=== PATIENT | female | born 1945 | race Caucasian/White ===

== ENCOUNTER → 2016-05-14 | Outpatient (CLI) | payer MEDICARE ==
--- NOTE | 2016-05-16 11:07 | MM ---
Reason for exam: screening (asymptomatic). Last mammogram was performed 1 year and 7 months ago. History: Patient is postmenopausal. Took estrogen for 10 years beginning at age 49. Physical Findings: A clinical breast exam by your physician is recommended on an annual basis and results should be correlated with mammographic findings. MG Screening Mammo w CAD Bilateral CC and MLO view(s) were taken. Prior study comparison: October 02, 2014, mammogram, performed at [facility]. June 10, 2013, mammogram, performed at [facility]. The breast tissue is almost entirely fat. Finding: There are round, regional and diffuse calcifications in both breasts, greater in the right breast. There is no discrete abnormality. ASSESSMENT: Benign, BI-RAD 2 RECOMMENDATION: Routine screening mammogram of both breasts in 1 year.
== END | disposition home or self-care (01) ==
LOC: RADMAMWWP 07:08
PROVIDERS: ATTEND Family Medicine
DX: Z12.31 Encounter for screening mammogram for malignant neoplasm of breast (principal)

== ENCOUNTER 2016-08-22 12:44 | Inpatient (IN) | payer MEDICARE ==
[2016-08-22] MEDS ORDERED: methylPREDNISolone SOD SUCCI 125 MG/2 ML VIAL IV STA (12:57)
[2016-08-22] MEDS ORDERED: IPRATROPIUM 0.5 MG/2.5 ML NEBU INHALATION STA (12:57)
[2016-08-22] MEDS ORDERED: SODIUM CHLORIDE 0.9% 1,000 ML IV STA (12:57)
[2016-08-22] MEDS ORDERED: SODIUM CHLORIDE 0.9% 500 ML IV STA (12:57)
[2016-08-22] MEDS ORDERED: ALBUTEROL NEBULIZED 2.5 MG/3 ML INHALATION STA (12:57)
--- NOTE | 2016-08-22 13:17 | ED ---
General Adult HPI - General Chief complaint: Upper Respiratory Infection Stated complaint: DIANA Time Seen by Provider: 08/22/16 12:57 Source: patient, RN notes reviewed, old records reviewed Mode of arrival: wheelchair Limitations: no limitations - History of Present Illness Initial comments: This is a 72-year-old female the ER for evaluation. The patient severely for evaluation of significant and severe shortness of breath. Patient is a history of smoking and COPD. Patient has never been admitted for breathing issues before. 2-3 days of worsening shortness of breath. Weakness and inability to ambulate secondary to shortness of breath. Patient's ABG was at home with no help. No fevers, does have increased cough and congestion - Related Data Home Medications Medication Instructions Recorded Confirmed Cholecalciferol [Vitamin D3] 2,000 unit PO DAILY 11/21/14 08/22/16 Losartan Potassium [Cozaar] 100 mg PO DAILY 11/21/14 08/22/16 Promethazine/Dextromethorphan 5 ml PO HS 11/21/14 08/22/16 [Promethazine-Dm Syrup] Simvastatin [Zocor] 20 mg PO HS 11/21/14 08/22/16 Calcium Carbonate [Calcium] 600 mg PO DAILY 08/22/16 08/22/16 Ibuprofen [Motrin] 400 mg PO Q6HR PRN 08/22/16 08/22/16 Multivitamins, Thera [Multivitamin 1 tab PO DAILY 08/22/16 08/22/16 (formulary)] Raloxifene HCl 60 mg PO DAILY 08/22/16 08/22/16 Allergies Allergy/AdvReac Type Severity Reaction Status Date / Time erythromycin base AdvReac Rash/Hives Verified 08/22/16 13:59 Penicillins AdvReac Rash/Hives Verified 08/22/16 13:59 Review of Systems ROS Statement: Those systems with pertinent positive or pertinent negative responses have been documented in the HPI. ROS Other: All systems not noted in ROS Statement are negative. Past Medical History Past Medical History: Asthma, COPD, Hyperlipidemia, Hypertension History of Any Multi-Drug Resistant Organisms: None Reported Past Surgical History: Appendectomy, Hernia Repair Past Psychological History: No Psychological Hx Reported Smoking Status: Current every day smoker Past Alcohol Use History: None Reported Past Drug Use History: None Reported General Exam Limitations: no limitations General appearance: alert, anxious, in distress, cachectic Head exam: Present: atraumatic, normocephalic, normal inspection Eye exam: Present: normal appearance, PERRL, EOMI. Absent: scleral icterus, conjunctival injection, periorbital swelling ENT exam: Present: normal exam, mucous membranes moist Neck exam: Present: normal inspection. Absent: tenderness, meningismus, lymphadenopathy Respiratory exam: Present: wheezes, accessory muscle use, decreased breath sounds, prolonged expiratory. Absent: respiratory distress, rales, rhonchi, stridor Cardiovascular Exam: Present: normal rhythm, tachycardia, normal heart sounds. Absent: systolic murmur, diastolic murmur, rubs, gallop, clicks GI/Abdominal exam: Present: soft, normal bowel sounds. Absent: distended, tenderness, guarding, rebound, rigid Extremities exam: Present: normal inspection, full ROM, normal capillary refill. Absent: tenderness, pedal edema, joint swelling, calf tenderness Back exam: Present: normal inspection Neurological exam: Present: alert, oriented X3, CN II-XII intact Psychiatric exam: Present: normal affect, normal mood Skin exam: Present: warm, dry, intact, normal color. Absent: rash Course Vital Signs 08/22/16 08/22/16 08/22/16 12:52 13:09 13:11 Temperature 99.1 F Pulse Rate 108 H 100 Respiratory 26 H Rate Blood Pressure 159/80 O2 Sat by Pulse 89 L 96 Oximetry 08/22/16 08/22/16 08/22/16 13:12 13:20 13:45 Temperature Pulse Rate 102 H 119 H Respiratory 22 22 20 Rate Blood Pressure 134/77 O2 Sat by Pulse 99 Oximetry 08/22/16 08/22/16 08/22/16 14:02 14:13 15:03 Temperature 98.7 F Pulse Rate 119 H 111 H 130 H Respiratory 18 20 Rate Blood Pressure 136/63 123/56 O2 Sat by Pulse 100 97 Oximetry - Reevaluation(s) Reevaluation #1: 08/22/16 15:14 Patient remains persistently tachycardic, hypoxic and short of breath despite prolonged breathing treatment on oxygen and is still requiring oxygen EKG Findings - EKG Comments: EKG Findings:: EKG shows sinus tachycardia rate 101, AK 126, QRS 64, QTc 443 Medical Decision Making - Medical Decision Making 72. EF reevaluation significant shortness of breath hypoxia and room air nonhome O2. Patient is a long-time smoker with no diagnosis of COPD, patient's new onset COPD, will admit for IV steroids, continuous breathing treatments, IV resuscitation monitoring of cardiopulmonary status - Lab Data Result diagrams: 08/22/16 13:05 08/22/16 13:05 Lab Results 08/22/16 08/22/16 08/22/16 Range/Units 13:05 13:05 13:05 WBC 8.6 (3.8-10.6) k/uL RBC 5.27 (3.80-5.40) m/uL Hgb 15.9 (11.4-16.0) gm/dL Hct 50.1 H (34.0-46.0) % MCV 95.0 (80.0-100.0) fL MCH 30.2 (25.0-35.0) pg MCHC 31.8 (31.0-37.0) g/dL RDW 13.8 (11.5-15.5) % Plt Count 185 (150-450) k/uL Neutrophils % 74 % Lymphocytes % 12 % Monocytes % 7 % Eosinophils % 4 % Basophils % 1 % Neutrophils # 6.3 (1.3-7.7) k/uL Lymphocytes # 1.0 (1.0-4.8) k/uL Monocytes # 0.6 (0-1.0) k/uL Eosinophils # 0.4 (0-0.7) k/uL Basophils # 0.1 (0-0.2) k/uL PT (9.0-12.0) sec INR (<1.1) APTT (22.0-30.0) sec Sodium 141 (137-145) mmol/L Potassium 4.1 (3.5-5.1) mmol/L Chloride 107 (98-107) mmol/L Carbon Dioxide 26 (22-30) mmol/L Anion Gap 8 mmol/L BUN 19 H (7-17) mg/dL Creatinine 0.58 (0.52-1.04) mg/dL Est GFR (MDRD) Af Amer >60 (>60 ml/min/1.73 sqM) Est GFR (MDRD) Non-Af >60 (>60 ml/min/1.73 sqM) Glucose 92 (74-99) mg/dL Calcium 9.4 (8.4-10.2) mg/dL Magnesium 2.0 (1.6-2.3) mg/dL Total Bilirubin 0.8 (0.2-1.3) mg/dL AST 32 (14-36) U/L ALT 32 (9-52) U/L Alkaline Phosphatase 60 (38-126) U/L Total Creatine Kinase 132 (30-135) U/L CK-MB (CK-2) 2.6 H* (0.0-2.4) ng/mL CK-MB (CK-2) Rel Index 2.0 Troponin I <0.012 (0.000-0.034) ng/mL NT-Pro-B Natriuret Pep pg/mL Total Protein 7.1 (6.3-8.2) g/dL Albumin 4.1 (3.5-5.0) g/dL 08/22/16 08/22/16 Range/Units 13:05 13:05 WBC (3.8-10.6) k/uL RBC (3.80-5.40) m/uL Hgb (11.4-16.0) gm/dL Hct (34.0-46.0) % MCV (80.0-100.0) fL MCH (25.0-35.0) pg MCHC (31.0-37.0) g/dL RDW (11.5-15.5) % Plt Count (150-450) k/uL Neutrophils % % Lymphocytes % % Monocytes % % Eosinophils % % Basophils % % Neutrophils # (1.3-7.7) k/uL Lymphocytes # (1.0-4.8) k/uL Monocytes # (0-1.0) k/uL Eosinophils # (0-0.7) k/uL Basophils # (0-0.2) k/uL PT 10.1 (9.0-12.0) sec INR 1.0 (<1.1) APTT 22.0 (22.0-30.0) sec Sodium (137-145) mmol/L Potassium (3.5-5.1) mmol/L Chloride (98-107) mmol/L Carbon Dioxide (22-30) mmol/L Anion Gap mmol/L BUN (7-17) mg/dL Creatinine (0.52-1.04) mg/dL Est GFR (MDRD) Af Amer (>60 ml/min/1.73 sqM) Est GFR (MDRD) Non-Af (>60 ml/min/1.73 sqM) Glucose (74-99) mg/dL Calcium (8.4-10.2) mg/dL Magnesium (1.6-2.3) mg/dL Total Bilirubin (0.2-1.3) mg/dL AST (14-36) U/L ALT (9-52) U/L Alkaline Phosphatase (38-126) U/L Total Creatine Kinase (30-135) U/L CK-MB (CK-2) (0.0-2.4) ng/mL CK-MB (CK-2) Rel Index Troponin I (0.000-0.034) ng/mL NT-Pro-B Natriuret Pep 176 pg/mL Total Protein (6.3-8.2) g/dL Albumin (3.5-5.0) g/dL - Radiology Data Radiology results: report reviewed, image reviewed Critical Care Time Critical Care Time: Yes Total Critical Care Time: 31 Disposition Clinical Impression: Bronchitis, Acute exacerbation of COPD with asthma, Hypoxia Disposition: ADMITTED IP TO THIS [facility] Condition: Fair Referrals: Nathanael Watt DO [Primary Care Provider] - 1-2 days
[2016-08-22 13:39] LABS: Basophils # (A) 0.1 k/uL (0-0.2); Basophils % (A) 1 %; CH 30.4; CHCM 32.2; Eosinophils # (A) 0.4 k/uL (0-0.7); Eosinophils % (A) 4 %; HCT 50.1 % (34.0-46.0); HDW 2.15; HGB 15.9 gm/dL (11.4-16.0); Luc # (Auto) 0.16; Luc % (Auto) 2; Lymphocytes % (A) 12 %; MCH 30.2 pg (25.0-35.0); MCHC 31.8 g/dL (31.0-37.0); Monocytes # (A) 0.6 k/uL (0-1.0); Monocytes % (A) 7 %; Neutrophils # (A) 6.3 k/uL (1.3-7.7); Neutrophils % (A) 74 %; RBC 5.27 m/uL (3.80-5.40); RDW 13.8 % (11.5-15.5); WBC 8.6 k/uL (3.8-10.6); WBC (Perox) 8.32
[2016-08-22 13:42] LABS: Prothrombin Time 10.1 sec (9.0-12.0)
[2016-08-22 13:49] LABS: ALT 32 U/L (9-52); AST 32 U/L (14-36); Alkaline Phosphatase 60 U/L (38-126); Anion Gap 8 mmol/L; Blood Urea Nitrogen 19 mg/dL (7-17); Calcium 9.4 mg/dL (8.4-10.2); Carbon Dioxide 26 mmol/L (22-30); Chloride 107 mmol/L (98-107); Creatine Kinase 132 U/L (30-135); Glucose 92 mg/dL (74-99); Non-African American GFR(MDRD) >60 (>60 ml/min/1.73 sqM); Potassium 4.1 mmol/L (3.5-5.1); Sodium 141 mmol/L (137-145); Total Bilirubin 0.8 mg/dL (0.2-1.3); Total Protein 7.1 g/dL (6.3-8.2)
[2016-08-22 14:01] LABS: Troponin I <0.012 ng/mL (0.000-0.034)
[2016-08-22 14:10] LABS: Creatine Kinase MB 2.6 ng/mL (0.0-2.4)
--- NOTE | 2016-08-22 15:03 | XR ---
EXAMINATION TYPE: XR chest 2V DATE OF EXAM: 08/22/2016 2:45 PM COMPARISON: NONE INDICATION: Difficulty breathing history of COPD shortness of breath TECHNIQUE: 2 view chest FINDINGS: The heart size is normal. The pulmonary vasculature is normal. The lungs are clear. Small posterior fluid collection is present. IMPRESSION: 1. Small posterior pleural effusion
[2016-08-22] MEDS ORDERED: SODIUM CHLORIDE 0.9% 1,000 ML IV SCH (15:15)
[2016-08-22] MEDS ORDERED: IBUPROFEN 400 MG TAB PO PRN (16:58)
[2016-08-22 17:00] LABS: Glucose,Whole Blood 166 mg/dL (75-99)
[2016-08-22] MEDS: IPRATROPIUM-ALBUTEROL 3 ML NEB INHALATION SCH ×2 (17:04→21:32)
[2016-08-22] MEDS ORDERED: RALOXIFENE 60 MG TAB PO SCH (17:30)
[2016-08-22] MEDS ORDERED: LOSARTAN 50 MG TAB PO SCH (17:30)
[2016-08-22] MEDS: methylPREDNISolone SOD SUCCI 125 MG/2 ML VIAL IV SCH ×2 (17:35→23:24)
[2016-08-22] MEDS: CALCIUM CARBONATE 500 MG CHEWABLE PO SCH (17:46)
[2016-08-22] MEDS: MULTIVITAMINS, THERA 1 EACH TAB PO SCH (17:46)
[2016-08-22] MEDS: CHOLECALCIFEROL 1,000 UNIT TAB PO SCH (17:47)
[2016-08-22] MEDS: INSULIN LISPRO (humaLOG) 300 UNIT/3 ML VIAL SQ SCH ×2 (17:47→21:28)
[2016-08-22] MEDS ORDERED: ALPRAZolam 0.25 MG TAB PO STA ×2 (18:04→18:08)
[2016-08-22] MEDS: ACETAMINOPHEN TAB 325 MG TAB PO PRN (18:36)
[2016-08-22 20:06] VITALS: BMI 22.7
[2016-08-22 20:12] LABS: Hemoglobin A1C 5.4 % (4.2-6.1)
[2016-08-22 20:49] LABS: Glucose,Whole Blood 157 mg/dL (75-99)
[2016-08-22] MEDS: ATORVASTATIN 10 MG TAB PO SCH (20:59)
[2016-08-22] MEDS: RALOXIFENE 60 MG TAB PO SCH (20:59)
[2016-08-22] MEDS: LOSARTAN 50 MG TAB PO SCH (20:59)
[2016-08-22] MEDS: MELATONIN 3 MG TABLET PO SCH (21:29)
--- NOTE | 2016-08-22 23:01 | HP ---
DATE OF ADMISSION: 08/22/2016 PRESENTING COMPLAINT: Short of breath. HISTORY OF PRESENTING COMPLAINT: This is a very pleasant 71-year-old patient of Dr. Watt whose chronic stable medical conditions include hypertension, hyperlipidemia, osteoarthritis ( ) For 2 or 3 days patient was becoming more and more short of breath with cough, phlegm, dark in color. No fever. Appetite has dwindled. Just weak, tired. Patient remains a smoker. Admitted for the same. REVIEW OF SYSTEMS: CONSTITUTIONAL: Weak and tired. HEENT: None. RESPIRATORY: As above. CARDIOVASCULAR: None. GASTROINTESTINAL: None. GENITOURINARY: None. MUSCULOSKELETAL: Some pain in the joints. DERMATOLOGICAL: None. HEMATOLOGIC: None. LYMPHATICS: None. PSYCHIATRY: None. NEUROLOGICAL: None. PAST HISTORY: 1. COPD. 2. Hyperlipidemia. 3. Hypertension. PAST SURGICAL HISTORY: Appendectomy, hernia. SOCIAL HISTORY: . Has smoked 3/4 pack a day close to 60 years. No alcohol. FAMILY HISTORY: Reviewed; noncontributory to presentation. HOME MEDICATIONS: 1. Raloxifene 60 mg p.o. daily. 2. Motrin 400 mg q.6 p.r.n. 3. Calcium 600 mg p.o. daily. 4. Zocor 20 mg at bedtime. 5. Promethazine DM 5 mL at bedtime. 6. Multivitamin 1 tablet p.o. daily. 7. Cozaar 100 mg p.o. daily. 8. Vitamin D3 200 units p.o. daily. ALLERGIES: ERYTHROMYCIN and PENICILLIN. PHYSICAL EXAMINATION: VITAL SIGNS ON PRESENTATION: Temperature 97, pulse 117, respiration 20, blood pressure 127/91, pulse ox 95% on 2 L. GENERAL APPEARANCE: Thin build. Sitting up, short of breath. EYES: Pupils equal. Conjunctivae normal. HEENT: External appearance of nose and ears normal. Oral cavity normal. NECK: JVD not raised. Mass not palpable. RESPIRATORY: Effort increased. LUNGS: Poor air entry. Prolonged expiration and wheezing. CARDIOVASCULAR: First and second sounds normal. No edema. ABDOMEN: Soft, nontender. Liver and spleen not palpable. LYMPHATICS: No lymph node palpable in neck or axillae. PSYCHIATRY: Alert and oriented x3. Mood slightly anxious-appearing. NEUROLOGICAL: Pupils equal. Cranial nerves grossly intact. Power and sensation grossly intact. MUSCULOSKELETAL: Evidence of osteoarthritis, especially in the hands and knees. INVESTIGATIONS: White count 8.6, hemoglobin 13.9. Potassium 4.1. Troponin less than 0.012. Chest x-ray shows hyperinflation. ASSESSMENT: 1. Acute severe chronic obstructive pulmonary disease exacerbation in a smoker, probably from acute bronchitis. 2. Sinus tachycardia. 3. Chronic nicotine dependence. Patient is a cigarette smoker. 4. Hyperlipidemia. 5. Essential hypertension. 6. Primary osteoarthritis in multiple joints bilaterally. PLAN: Patient is put on nebulized bronchodilators every 4 hours, IV Solu-Medrol and nebulized steroids. Patient advised against smoking, given a nicotine patch. Home medications are resumed. DVT prophylaxis done. Patient was counseled extensively about not smoking.
[2016-08-23] MEDS: BUDESONIDE 1 MG/2 ML NEBU INHALATION SCH ×3 (00:30→20:43)
[2016-08-23] MEDS: IPRATROPIUM 0.5 MG/2.5 ML NEBU INHALATION SCH ×6 (00:49→23:49)
[2016-08-23] MEDS: ALBUTEROL NEBULIZED 2.5 MG/3 ML INHALATION SCH ×7 (00:49→23:48)
[2016-08-23] MEDS: methylPREDNISolone SOD SUCCI 125 MG/2 ML VIAL IV SCH ×3 (05:39→18:15)
[2016-08-23 07:41] LABS: Glucose,Whole Blood 109 mg/dL (75-99)
[2016-08-23] MEDS: INSULIN LISPRO (humaLOG) 300 UNIT/3 ML VIAL SQ SCH ×4 (07:57→22:35)
[2016-08-23] MEDS: AZITHROMYCIN 500 MG TAB PO SCH (09:13)
[2016-08-23] MEDS: CALCIUM CARBONATE 500 MG CHEWABLE PO SCH (09:14)
[2016-08-23] MEDS: ENOXAPARIN 40 MG/0.4 ML SYRINGE SQ SCH (09:14)
[2016-08-23] MEDS: NICOTINE 21MG/24HR PATCH TRANSDERM SCH (09:15)
[2016-08-23] MEDS: ACETAMINOPHEN TAB 325 MG TAB PO PRN (10:36)
[2016-08-23 12:42] LABS: Glucose,Whole Blood 124 mg/dL (75-99)
[2016-08-23] MEDS: CHOLECALCIFEROL 1,000 UNIT TAB PO SCH (12:42)
[2016-08-23] MEDS: MULTIVITAMINS, THERA 1 EACH TAB PO SCH (12:42)
[2016-08-23 17:23] LABS: Glucose,Whole Blood 117 mg/dL (75-99)
[2016-08-23] MEDS: RALOXIFENE 60 MG TAB PO SCH (20:37)
[2016-08-23] MEDS: ATORVASTATIN 10 MG TAB PO SCH (20:38)
[2016-08-23] MEDS: MELATONIN 3 MG TABLET PO SCH (20:38)
[2016-08-23] MEDS: LOSARTAN 50 MG TAB PO SCH (20:38)
[2016-08-23 22:33] LABS: Glucose,Whole Blood 176 mg/dL (75-99)
[2016-08-24] MEDS: methylPREDNISolone SOD SUCCI 40 MG/ML 1 ML VIAL IV SCH ×3 (00:52→16:54)
[2016-08-24] MEDS: IPRATROPIUM 0.5 MG/2.5 ML NEBU INHALATION SCH ×6 (03:45→23:50)
[2016-08-24] MEDS: ALBUTEROL NEBULIZED 2.5 MG/3 ML INHALATION SCH ×5 (03:45→18:48)
[2016-08-24 07:25] LABS: Glucose,Whole Blood 126 mg/dL (75-99)
[2016-08-24] MEDS: INSULIN LISPRO (humaLOG) 300 UNIT/3 ML VIAL SQ SCH ×4 (07:29→22:28)
[2016-08-24] MEDS: BUDESONIDE 1 MG/2 ML NEBU INHALATION SCH ×2 (07:59→19:47)
[2016-08-24] MEDS: AZITHROMYCIN 500 MG TAB PO SCH (08:51)
[2016-08-24] MEDS: CALCIUM CARBONATE 500 MG CHEWABLE PO SCH (08:51)
[2016-08-24] MEDS: NICOTINE 21MG/24HR PATCH TRANSDERM SCH (08:52)
[2016-08-24] MEDS: ENOXAPARIN 40 MG/0.4 ML SYRINGE SQ SCH (08:52)
[2016-08-24 09:20] LABS: Basophils % (A) 0 %; CHCM 31.8; Eosinophils # (A) 0.1 k/uL (0-0.7); Eosinophils % (A) 0 %; HCT 45.4 % (34.0-46.0); HDW 2.22; HGB 14.6 gm/dL (11.4-16.0); Luc # (Auto) 0.06; Luc % (Auto) 0; Lymphocytes # (A) 0.5 k/uL (1.0-4.8); Lymphocytes % (A) 2 %; MCH 30.6 pg (25.0-35.0); MCHC 32.3 g/dL (31.0-37.0); Mean Platelet Volume 7.5; Monocytes # (A) 0.6 k/uL (0-1.0); Monocytes % (A) 3 %; Neutrophils # (A) 18.3 k/uL (1.3-7.7); Neutrophils % (A) 94 %; RBC 4.78 m/uL (3.80-5.40); RDW 13.9 % (11.5-15.5); WBC 19.4 k/uL (3.8-10.6); WBC (Perox) 20.29
--- NOTE | 2016-08-24 09:46 | PN ---
DATE OF SERVICE: 08/23/2016 PRESENTING COMPLAINT: Shortness of breath. INTERVAL HISTORY: This is a pleasant 71-year-old patient who experienced increasing shortness of breath over a 2 to 3-day course. Patient experienced to cough up phlegm production was dark in color. No fevers were noted. Appetite was reduced. Complained of being weak and tired. Patient continues to smoke. Today, patient is sitting at the bedside, awake, alert, appears anxious, yet symptoms well controlled. Review of systems done for constitutional, cardiovascular, GI, pulmonary with relevant findings as above. CURRENT MEDICATIONS: Raloxifene, Motrin, calcium, Zocor, promethazine, multivitamin, Cozaar, vitamin D 3. PHYSICAL EXAMINATION: VITAL SIGNS: Temperature 98.7, heart rate 118, respiratory rate 18, blood pressure 124/61, oxygen saturation 96% on 2 L nasal cannula. GENERAL APPEARANCE: Patient is sitting up in bed breathing easily, noted some shaking, tearful when speaking of her and family situation, anxious appearing. EYES: Pupils equal. Conjunctivae normal. NECK: JVD not raised. Mass not palpable. RESPIRATORY: Effort increased. LUNGS: Poor air entry. Prolonged expiration and wheezing. CARDIOVASCULAR: S1, S2 sounds normal. No edema. ABDOMEN: Soft, nontender. Liver and spleen not palpable. PSYCHIATRY: Alert and oriented x3. Mood slightly anxious appearing. INVESTIGATIONS: No new lab values or x-rays to report. ASSESSMENT: 1. Acute severe chronic obstructive pulmonary disease exacerbation in a smoker, probably from acute bronchitis. 2. Sinus tachycardia secondary to steroid use. 3. Nicotine dependence. Patient is a cigarette smoker. 4. Hyperlipidemia. 5. Essential hypertension. 6. Primary osteoarthritis in multiple joints bilaterally. PLAN: Patient will continue to be on nebulized bronchodilators every 4 hours, IV Solu-Medrol will be tapered as patient's condition dictates as well as nebulized steroids. Once again today patient was advised against smoking, provided a nicotine patch. For anxiety, patient was provided with a small dose of Xanax twice a day.
[2016-08-24 10:23] LABS: Anion Gap 7 mmol/L; Blood Urea Nitrogen 20 mg/dL (7-17); Calcium 9.2 mg/dL (8.4-10.2); Carbon Dioxide 28 mmol/L (22-30); Chloride 112 mmol/L (98-107); Glucose 116 mg/dL (74-99); Non-African American GFR(MDRD) >60 (>60 ml/min/1.73 sqM); Potassium 3.9 mmol/L (3.5-5.1); Sodium 147 mmol/L (137-145)
--- NOTE | 2016-08-24 12:08 | CDI ---
In responding to this query, please exercise your independent professional judgment. The [facility] Coding Staff and Clinical Documentation Specialists appreciate your assistance in clarifying documentation, maintaining compliance with coding guidelines, accurately documenting patients condition and capturing severity of illness. The fact that a question is asked does not imply that any particular answer is desired or expected. Communication forms are a method of clarifying documentation and are not made part of the Legal Health Record. Thank you in advance for your clarification. Last Revision, June 2015 Narcisa Martinez [address] [place] [address] Documentation Clarification Form Date: 08/23/2016 11:38:00 AM From: Amanda Pereira RN, CDS Admit Date: 08/22/2016 3:13:00 PM Patient Name: Alexandra De Jesus Visit Number: [id number] Dr. Mic Lund, Chikis Mendoza, TIA The patient presented with the following respiratory symptoms: shortness of breath worsening for 2-3 days, Cough Documentation and location in medical record included: History/Risk Factors: 71 yo COPD, smoker, worsening shortness of breath, weakness, inability to ambulate Home oxygen: None Clinical Indicators: "Wheezes, Accessory muscle use, decreased breath sounds, prolonged expiratory" "Hypoxia" per ED, O2 sat 89% on room air on admission, " respiratory effort increased, Poor air entry, prolonged expiration and wheezing , Vital signs/Pulse oximetry: Resp: 26 in ED, Resp range 20-22, O2 Sat 89/room air then 96-100 on Nebs and O2/2L Treatment: Duoneb, IV Solu-medrol, O2/2L per PA In your professional opinion, can you please clarify if these findings signify one of the following conditions? Respiratory Status: o Acute Respiratory failure with hypoxia o Other Diagnosis, please specify o Unable to determine Please document in your progress notes and discharge summary in order to capture severity of illness and risk of mortality. Include clinical findings that support your diagnosis. FYI: Press F11 to launch patient chart. Place X here if this finding has no clinical significance, is not applicable or if you are not able to provide any additional documentation. MOHAN
[2016-08-24 12:33] LABS: Glucose,Whole Blood 94 mg/dL (75-99)
[2016-08-24] MEDS: CHOLECALCIFEROL 1,000 UNIT TAB PO SCH (13:42)
[2016-08-24] MEDS: MULTIVITAMINS, THERA 1 EACH TAB PO SCH (13:42)
[2016-08-24] MEDS: ALPRAZolam 0.25 MG TAB PO PRN (16:54)
[2016-08-24 17:56] LABS: Glucose,Whole Blood 105 mg/dL (75-99)
[2016-08-24] MEDS: ALBUTEROL NEB (CONC) 2.5 MG/0.5 ML INHALATION SCH ×2 (19:47→23:50)
[2016-08-24] MEDS ORDERED: ALPRAZolam 0.25 MG TAB PO SCH (21:00)
[2016-08-24 21:29] LABS: Glucose,Whole Blood 136 mg/dL (75-99)
--- NOTE | 2016-08-24 21:58 | PN ---
DATE OF SERVICE: 08/24/2016 PRESENTING COMPLAINT: Shortness of breath. This is a 71-year-old patient who experienced increasing shortness of breath, inability to cough up phlegm; however, when she did, phlegm was dark in color. Patient is sitting on the bedside, awake, alert, appears anxious, yet symptoms are well controlled. Review of systems done for constitutional, cardiovascular, GI, pulmonary, with relevant findings as above. CURRENT MEDICATIONS: 1. Raloxifene. 2. Motrin. 3. Calcium. 4. Zocor. 5. Promethazine. 6. Multivitamin. 7. Cozaar. 8. Vitamin D3. PHYSICAL EXAMINATION: VITAL SIGNS: Temperature 96.3, heart rate 58, respiratory rate 20, blood pressure 148/67, oxygen saturation 90% on 2 L nasal cannula. GENERAL APPEARANCE: Patient is sitting up on the bed, breathing easily. Some shaking is noted. Anxious-appearing. EYES: Pupils equal. Conjunctivae normal. NECK: JVD not raised. Mass not palpable. RESPIRATORY: Effort increased. LUNGS: Poor air entry. Prolonged expiration and wheezing. CARDIOVASCULAR: S1, S2 sounds normal. No edema. Patient's heart rate periodically goes up into the 110s per telemetry. ABDOMEN: Soft, nontender. Liver and spleen not palpable. PSYCHIATRY: Alert and oriented x3. Mood slightly anxious-appearing. INVESTIGATIONS: White blood cell count 19.4. Sodium 147, chloride 112, BUN 20. Blood glucose being monitored secondary to steroid administration. ASSESSMENT: 1. Acute severe chronic obstructive pulmonary disease exacerbation in a smoker, probably from acute bronchitis. 2. Sinus tachycardia secondary to steroid use. 3. Nicotine dependence. Patient is a cigarette smoker. 4. Hyperlipidemia. 5. Essential hypertension. 6. Primary osteoarthritis in multiple joints bilaterally. PLAN: Patient will continue to be on nebulized bronchodilators every 4 hours. IV Solu-Medrol will be tapered as patient's condition dictates as well as nebulized steroids. Once again, patient was advised against smoking, provided a nicotine patch. For anxiety patient was provided with a small dose of Xanax twice a day. Patient was seen and examined by me, nurse practitioner, and attending, Dr. Lund. The relevant points of the history, physical, diagnoses and plan were discussed and are as dictated above.
[2016-08-24] MEDS: MELATONIN 3 MG TABLET PO SCH (22:26)
[2016-08-24] MEDS: RALOXIFENE 60 MG TAB PO SCH (22:26)
[2016-08-24] MEDS: ATORVASTATIN 10 MG TAB PO SCH (22:27)
[2016-08-24] MEDS: LOSARTAN 50 MG TAB PO SCH (23:40)
[2016-08-25] MEDS: methylPREDNISolone SOD SUCCI 40 MG/ML 1 ML VIAL IV SCH ×2 (00:50→08:55)
[2016-08-25] MEDS: ALBUTEROL NEB (CONC) 2.5 MG/0.5 ML INHALATION SCH ×6 (03:55→23:06)
[2016-08-25] MEDS: IPRATROPIUM 0.5 MG/2.5 ML NEBU INHALATION SCH ×6 (03:55→23:06)
[2016-08-25 07:45] LABS: Glucose,Whole Blood 102 mg/dL (75-99)
[2016-08-25] MEDS: INSULIN LISPRO (humaLOG) 300 UNIT/3 ML VIAL SQ SCH ×4 (07:51→21:38)
[2016-08-25] MEDS: BUDESONIDE 1 MG/2 ML NEBU INHALATION SCH ×2 (07:56→19:46)
[2016-08-25] MEDS: ACETAMINOPHEN TAB 325 MG TAB PO PRN (08:50)
[2016-08-25 08:53] LABS: Basophils % (A) 0 %; CH 30.1; CHCM 31.7; Eosinophils % (A) 0 %; HCT 46.9 % (34.0-46.0); HDW 2.21; HGB 14.8 gm/dL (11.4-16.0); Luc # (Auto) 0.07; Luc % (Auto) 0; Lymphocytes # (A) 0.5 k/uL (1.0-4.8); Lymphocytes % (A) 3 %; MCH 30.1 pg (25.0-35.0); MCHC 31.5 g/dL (31.0-37.0); MCV 95.3 fL (80.0-100.0); Mean Platelet Volume 7.9; Monocytes # (A) 0.4 k/uL (0-1.0); Monocytes % (A) 3 %; Neutrophils # (A) 15.3 k/uL (1.3-7.7); Neutrophils % (A) 93 %; RBC 4.92 m/uL (3.80-5.40); RDW 13.9 % (11.5-15.5); WBC 16.4 k/uL (3.8-10.6); WBC (Perox) 16.76
[2016-08-25] MEDS: ENOXAPARIN 40 MG/0.4 ML SYRINGE SQ SCH (08:54)
[2016-08-25] MEDS: NICOTINE 21MG/24HR PATCH TRANSDERM SCH (08:54)
[2016-08-25] MEDS: AZITHROMYCIN 500 MG TAB PO SCH (08:55)
[2016-08-25] MEDS: ALPRAZolam 0.25 MG TAB PO PRN ×2 (08:55→21:38)
[2016-08-25] MEDS: CALCIUM CARBONATE 500 MG CHEWABLE PO SCH (08:55)
[2016-08-25 11:47] LABS: Glucose,Whole Blood 88 mg/dL (75-99)
[2016-08-25] MEDS: MULTIVITAMINS, THERA 1 EACH TAB PO SCH (12:04)
[2016-08-25] MEDS: CHOLECALCIFEROL 1,000 UNIT TAB PO SCH (12:05)
--- NOTE | 2016-08-25 17:13 | PN ---
Patient is a 71-year-old who is admitted for COPD exacerbation. Patient is not wheezing significantly on exam, although she may have a little bit of wheeze, but patient continues to desaturate, because of which I wanted to rule out pulmonary embolism. I will obtain a D-dimer. I will switch her to oral prednisone. If D-dimer is positive, will get a CT angiogram of the chest to rule out pulmonary embolism. Patient became tachycardic, which was believed secondary to systemic steroids. Patient is on and off tachycardic. Hopefully that will improve with discontinuation of IV steroids. Will put her on oral steroids at this time. REVIEW OF SYSTEMS: CARDIOVASCULAR: No chest pain, no orthopnea, no PND, no palpitations. PULMONARY: Significantly improved shortness of breath. GASTROINTESTINAL: No diarrhea, nausea or vomiting. No abdominal pain. Normoactive bowel sounds. NEUROLOGIC: No headaches, no weakness, no numbness. Medications were reviewed. PHYSICAL EXAMINATION: VITAL SIGNS: Temperature 97.4, pulse of 97. It goes up as high as 115. Respiratory rate of 22. Blood pressure is 160/90. Saturating at 90% on 2 L of oxygen by nasal cannula. Patient desaturated to 85% and heart rate went up to 130 upon ambulation. GENERAL: The patient is alert and oriented x3, not in any acute distress. Well developed, well nourished. HEENT: Pupils are round and equally reacting to light. EOMI. No scleral icterus. No conjunctival pallor. Normocephalic, atraumatic. No pharyngeal erythema. No thyromegaly. CARDIOVASCULAR: S1 and S2 present. No murmurs, rubs, or gallops. PULMONARY: Mild decreased air entry into bilateral lung taylor. Very minimal expiratory wheezing was appreciated. ABDOMEN: Soft, nontender, nondistended, normoactive bowel sounds. No palpable organomegaly. MUSCULOSKELETAL: No joint swelling or deformity. EXTREMITIES: No cyanosis, clubbing, or pedal edema. NEUROLOGICAL: Gross neurological examination did not reveal any focal deficits. SKIN: No rashes. LABORATORY DATA: CBC and basic metabolic profile are abnormal for elevated WBC count of 16,400 due to systemic steroids. ASSESSMENT AND PLAN: 1. Acute hypercapnic respiratory failure secondary to chronic obstructive pulmonary disease exacerbation. 2. Tracheobronchitis. 3. Sinus tachycardia which was believed secondary to systemic steroids and may be related to hypoxemia as well. 4. Nicotine dependence. Counseling was provided. 5. Hyperlipidemia. 6. Essential hypertension. 7. Osteoarthritis. 8. Rule out pulmonary embolism. PLAN: To continue with systemic steroids, inhalational treatments. D-dimer as mentioned above. If that is positive, will go ahead and get a CT of the chest to rule out pulmonary embolism.
[2016-08-25 17:17] LABS: Glucose,Whole Blood 103 mg/dL (75-99)
[2016-08-25 21:17] LABS: Glucose,Whole Blood 134 mg/dL (75-99)
[2016-08-25] MEDS: RALOXIFENE 60 MG TAB PO SCH (21:37)
[2016-08-25] MEDS: LOSARTAN 50 MG TAB PO SCH (21:38)
[2016-08-25] MEDS: ATORVASTATIN 10 MG TAB PO SCH (21:38)
[2016-08-25] MEDS: MELATONIN 3 MG TABLET PO SCH (21:38)
[2016-08-26] MEDS: ALBUTEROL NEB (CONC) 2.5 MG/0.5 ML INHALATION SCH ×3 (02:29→11:22)
[2016-08-26] MEDS: IPRATROPIUM 0.5 MG/2.5 ML NEBU INHALATION SCH ×3 (02:29→11:22)
[2016-08-26 07:42] LABS: Glucose,Whole Blood 78 mg/dL (75-99)
[2016-08-26] MEDS: BUDESONIDE 1 MG/2 ML NEBU INHALATION SCH (07:46)
[2016-08-26] MEDS: INSULIN LISPRO (humaLOG) 300 UNIT/3 ML VIAL SQ SCH (07:50)
[2016-08-26] MEDS: CALCIUM CARBONATE 500 MG CHEWABLE PO SCH (08:07)
[2016-08-26] MEDS: NICOTINE 21MG/24HR PATCH TRANSDERM SCH (08:07)
[2016-08-26] MEDS: ALPRAZolam 0.25 MG TAB PO PRN (08:07)
[2016-08-26] MEDS: ACETAMINOPHEN TAB 325 MG TAB PO PRN (08:07)
[2016-08-26] MEDS: AZITHROMYCIN 500 MG TAB PO SCH (08:08)
[2016-08-26] MEDS: ENOXAPARIN 40 MG/0.4 ML SYRINGE SQ SCH (08:08)
[2016-08-26] MEDS ORDERED: predniSONE 20 MG TAB PO SCH (09:00)
[2016-08-26] MEDS: MULTIVITAMINS, THERA 1 EACH TAB PO SCH (12:09)
[2016-08-26] MEDS: CHOLECALCIFEROL 1,000 UNIT TAB PO SCH (12:09)
--- NOTE | 2016-08-26 12:12 | DS ---
DATE OF ADMISSION: 08/22/2016 DATE OF DISCHARGE: A 71-year-old admitted with COPD exacerbation. Patient is still wheezing a little bit, but patient is expected to improved and patient is requiring home O2 and patient will be discharged today. The patient was mildly tachycardic, believed to be secondary to systemic steroids. She is expected to improve as we are switching her to oral steroids. Patient was seen and examined on the day of discharge. Vitals are stable. PHYSICAL EXAMINATION: GENERAL: The patient is alert and oriented x3, not in any acute distress. Well developed, well nourished. HEENT: Pupils are round and equally reacting to light. EOMI. No scleral icterus. No conjunctival pallor. Normocephalic, atraumatic. No pharyngeal erythema. No thyromegaly. CARDIOVASCULAR: S1 and S2 present. No murmurs, rubs, or gallops. PULMONARY: As described in HPI. ABDOMEN: Soft, nontender, nondistended, normoactive bowel sounds. No palpable organomegaly. MUSCULOSKELETAL: No joint swelling or deformity. EXTREMITIES: No cyanosis, clubbing, or pedal edema. NEUROLOGICAL: Gross neurological examination did not reveal any focal deficits. SKIN: No rashes. LABORATORY DATA: Leukocytosis which is improving. D-dimer is negative. ASSESSMENT AND PLAN: 1. Acute hypercapnic respiratory failure secondary to chronic obstructive pulmonary disease exacerbation. 2. Ruled out pulmonary embolism. 3. Tracheobronchitis. 4. Sinus tachycardia due to systemic steroids. 5. Nicotine dependence. 6. Hyperlipidemia. 7. Essential hypertension. 8. Osteoarthritis. Patient will be discharged today to follow with Dr. Nathanael Watt on August 30 at 1:15 and patient will be referred to Dr. Guerin. Patient will need outpatient pulmonary function testing. Activity as tolerated. Cardiac diet. I spent greater than 35 minutes in total discharge process.
[2016-08-26 14:54] VITALS: BP 132/80; PULSE 100; RESP 16; TEMP 97.6
--- NOTE | 2016-09-20 06:56 | PN ---
DATE OF SERVICE: 08/23/2016 ATTENDING NOTE: This patient was seen and examined by me on 08/23/16. I reviewed the note of my nurse practitioner, Ms. Mendoza. Discussed and agree with the same. Patient presented with COPD exacerbation and bronchitis. Patient is weak and tired. Symptoms are somewhat slightly better, awake. On examination, afebrile, blood pressure 120/61, pulse ox 96% on 2 L. LUNGS: Decreased breath sounds. Prolonged expiration and wheezing. CARDIOVASCULAR: First and second sounds normal. No edema. PSYCH: Slightly anxious appearing. ASSESSMENT: Acute severe chronic obstructive pulmonary disease exacerbation in a smoker, slow to respond with acute bronchitis. PLAN: Continue current medications and treatment plan including nebulized bronchodilators ( ), IV Solu-Medrol. Advised against smoking. Xanax is being added for anxiety.
--- NOTE | 2016-09-21 07:55 | PN ---
DATE OF SERVICE: 08/24/2016 ATTENDING NOTE: This patient was examined by me on 08/24/2016. I reviewed the note of my nurse practitioner, Ms. Mendoza. Discussed and agreed. This is a patient who presented with COPD exacerbation probably from acute bronchitis. Symptoms are getting better. On exam, afebrile. Blood pressure 148/67. RESPIRATORY: Effort increased. LUNGS: Decreased breath sounds. Prolonged expiration and wheezing. CARDIOVASCULAR: First and second sounds normal. No edema. The patient is anxious appearing. ASSESSMENT: 1. Acute severe chronic obstructive pulmonary disease exacerbation from acute bronchitis. 2. Sinus tachycardia, probably from bronchodilators. PLAN: Continue with bronchodilators. IV Solu-Medrol starting to be cut back. Yet again advised against smoking. Some Xanax was added for anxiety.
== END 2016-08-26 15:43 | disposition home or self-care (01) | DRG 189 ==
LOC: EC 12:44 → 4MS4W 15:13
PROVIDERS: ADMIT Hospitalist; ATTEND Hospitalist
DX: J96.01 Acute respiratory failure with hypoxia (principal); Z99.81 Dependence on supplemental oxygen; J44.0 Chronic obstructive pulmonary disease with (acute) lower respiratory infection; J44.1 Chronic obstructive pulmonary disease with (acute) exacerbation; M15.9 Polyosteoarthritis, unspecified; J96.02 Acute respiratory failure with hypercapnia; E78.5 Hyperlipidemia, unspecified; F17.210 Nicotine dependence, cigarettes, uncomplicated; I10 Essential (primary) hypertension; J20.9 Acute bronchitis, unspecified; J45.909 Unspecified asthma, uncomplicated; T38.0X5A Adverse effect of glucocorticoids and synthetic analogues, initial encounter; Z79.899 Other long term (current) drug therapy; R00.0 Tachycardia, unspecified; D72.829 Elevated white blood cell count, unspecified; Z88.1 Allergy status to other antibiotic agents; Z88.0 Allergy status to penicillin
CPT/HCPCS: 36415; 71020; 80048; 80053; 82550; 82553; 83036; 83735; 83880; 84484; 85025; 85379; 85610; 85730; 87040; 93005; 94640; 94644; 94760; 96361; 96374; 99291

== ENCOUNTER → 2017-05-17 | Outpatient (CLI) | payer MEDICARE ==
--- NOTE | 2017-05-17 09:46 | XR ---
Fourth digit left hand HISTORY: Swelling, mass 3 views of the fourth digit of the left hand There is joint space loss and marginal spurring present at the proximal interphalangeal joint of the fourth digit of the left hand, some mild medial subluxation is present at the joint, there is [facility] soft tissue swelling present. A hooked osteophyte present at the distal third metacarpal. 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
== END | disposition home or self-care (01) ==
LOC: RADXRMAIN 08:58
PROVIDERS: ATTEND Family Medicine
DX: M19.042 Primary osteoarthritis, left hand (principal)

== ENCOUNTER → 2017-06-07 | Outpatient (CLI) | payer MEDICARE ==
--- NOTE | 2017-06-07 16:33 | BD ---
EXAMINATION TYPE: MG DEXA axial skeleton. DATE OF EXAM: 06/07/2017 COMPARISON: NONE CLINICAL HISTORY: Height: 4 ft 7 in Weight: 115 FRAX RISK QUESTIONS: Alcohol (3 or more units per day): NO Family History (Parent hip fracture): NO Glucocorticoids (More than 3mos): NO (Ex: prednisone, prednisolone, methylprednisolone, dexamethasone, and hydrocortisone). History of Fracture in Adulthood: NO Secondary Osteoporosis: 1. Type 1 Diabetes: NO 2. Hyperthyroidism: NO 3. Menopause before 45: NO 4. Malnutrition: NO 5. Chronic liver disease: NO Rheumatoid Arthritis: NO Current Tobacco Use: NO RISK FACTORS HISTORY OF: Active: NO Postmenopausal woman: PART HYST AGE 31 Take estrogen and/or progesterone medications: NONE NOW How long: HRT FROM 49 - 59 Lost more than 2 inches in height since high school: YES MEDICATIONS: Additional Medications: SIMVASTATIN, HYZAAR, RALOXIFENE, CALCIUM, VIT D , SPIRIVA, VENTOLIN, MUCENEX, PROMETHAZINE Additional History: PT HAS BEEN ON EVISTA FOR TWO YEARS EXAM MEASUREMENTS: Bone mineral densitometry was performed using the [employer] System. Bone mineral density as measured about the Lumbar spine is: ----- L1-L4(G/cm2): 1.527 T Score Values are as follows: ----- L2: 1.8 ----- L3: 4.2 ----- L4: 4.4 ----- L1-L4: 2.9 Bone mineral density has: INCREASED 13.0 % since study of: 2013 Bone mineral density about the R hip (g/cm2): 0.689 Bone mineral density about the L hip (g/cm2): 0.724 T Score values are as follows: -----R Neck: -2.5 -----L Neck: -2.3 -----R Total: -2.0 -----L Total: -1.4 Bone mineral density has: INCREASED 4.5 % since study of: 2013 IMPRESSION: Osteoporosis (T Score less than -2.5) as noted by T Score values at the There is increased fracture risk and therapy is usually indicated based on age. Re-Screen 1-2 years. NOTE: T-SCORE=SD OF THE YOUNG ADULT MEAN.
--- NOTE | 2017-06-11 09:28 | MM ---
Reason for exam: screening (asymptomatic). Last mammogram was performed 1 year and 1 month ago. History: Patient is postmenopausal. Took estrogen for 10 years beginning at age 49. Physical Findings: A clinical breast exam by your physician is recommended on an annual basis and results should be correlated with mammographic findings. MG Screening Mammo w CAD Bilateral CC and MLO view(s) were taken. Prior study comparison: May 14, 2016, bilateral MG screening mammo w CAD. October 02, 2014, mammogram, performed at [facility]. There are scattered fibroglandular densities. No significant changes when compared with prior studies. ASSESSMENT: Benign, BI-RAD 2 RECOMMENDATION: Routine screening mammogram of both breasts in 1 year.
== END ==
LOC: RADMAMWWP 07:18
PROVIDERS: ATTEND Family Medicine
DX: Z12.31 Encounter for screening mammogram for malignant neoplasm of breast (principal); M81.0 Age-related osteoporosis without current pathological fracture
CPT/HCPCS: 77067; 77080

== ENCOUNTER 2017-12-29 18:15 | Emergency (ER) | payer MEDICARE ==
[2017-12-29 18:34] VITALS: BP 122/55; PULSE 84; RESP 16; TEMP 98.2
--- NOTE | 2017-12-29 19:04 | ED ---
Female Urogenital HPI - General Chief complaint: Urogenital Stated complaint: UTI Time Seen by Provider: 12/29/17 18:42 Source: patient Mode of arrival: ambulatory Limitations: no limitations - History of Present Illness Initial comments: Patient is a 72-year-old female presenting for dysuria. She states that this morning, she started having malodorous urine as well as burning with PCP. However, she denies any abdominal pain, nausea/vomiting/diarrhea, fevers/chills states that she has had urinary tract infections in the past and that this feels similar. - Related Data Home Medications Medication Instructions Recorded Confirmed Cholecalciferol [Vitamin D3] 2,000 unit PO DAILY 11/21/14 08/22/16 Promethazine/Dextromethorphan 5 ml PO HS 11/21/14 08/22/16 [Phenergan DM Syrup] Simvastatin [Zocor] 20 mg PO HS 11/21/14 08/22/16 Calcium Carbonate [Calcium] 600 mg PO DAILY 08/22/16 08/22/16 Ibuprofen [Motrin] 400 mg PO Q6HR PRN 08/22/16 08/22/16 Multivitamins, Thera [Multivitamin 1 tab PO DAILY 08/22/16 08/22/16 (formulary)] Raloxifene HCl 60 mg PO DAILY 08/22/16 08/22/16 Previous Rx's Medication Instructions Recorded Albuterol Inhaler [Ventolin Hfa 1 - 2 puff INHALATION Q6HR PRN #1 08/26/16 Inhaler] inhaler Azithromycin [Zithromax Tri-[place]] 500 mg PO DAILY #3 tab 08/26/16 Budesonide-Formot 160-4.5 Mcg 2 puff INHALATION BID #1 inhaler 08/26/16 [Symbicort 160-4.5 Mcg Inhaler] Losartan Potassium [Cozaar] 50 mg PO DAILY #0 08/26/16 Tiotropium [place] [Spiriva] 1 cap INHALATION DAILY #1 device 08/26/16 predniSONE 10 mg PO DAILY #30 tab 08/26/16 Sulfamethox-Tmp 800-160Mg [Bactrim 1 tab PO Q12HR 7 Days #14 tab 12/29/17 DS 800-160 mg] Allergies Allergy/AdvReac Type Severity Reaction Status Date / Time erythromycin base AdvReac Rash/Hives Verified 12/29/17 18:34 Penicillins AdvReac Rash/Hives Verified 12/29/17 18:34 Review of Systems ROS Statement: Those systems with pertinent positive or pertinent negative responses have been documented in the HPI. Constitutional: Negative for chills, fatigue and fever. HENT: Negative for congestion. Respiratory: Negative for chest tightness, shortness of breath and wheezing. Negative for cough Cardiovascular: Negative for chest pain and palpitations. Gastrointestinal: Negative for abdominal pain. Negative for abdominal distention , diarrhea, nausea and vomiting. Genitourinary: Positive for dysuria, positive for malodorous urine. Musculoskeletal: Negative for back pain, neck pain and neck stiffness. Skin: Negative for color change. Neurological: Negative for dizziness, speech difficulty, weakness and light- headedness. Psychiatric/Behavioral: Negative for agitation and confusion. Negative for anxiety ROS Other: All systems not noted in ROS Statement are negative. Past Medical History Past Medical History: Asthma, COPD, Hyperlipidemia, Hypertension Additional Past Medical History / Comment(s): UTI History of Any Multi-Drug Resistant Organisms: None Reported Past Surgical History: Appendectomy, Hernia Repair Past Anesthesia/Blood Transfusion Reactions: No Reported Reaction Past Psychological History: No Psychological Hx Reported Smoking Status: Former smoker Past Alcohol Use History: None Reported Past Drug Use History: None Reported General Exam - General Exam Comments Initial Comments: Constitutional: Pt is oriented to person, place, and time. Pt appears well- developed and well-nourished. No distress. HENT: Head: Normocephalic and atraumatic. Eyes: EOM are normal. Neck: Normal range of motion. Neck supple. Cardiovascular: Normal rate, regular rhythm, S1 normal, S2 normal and normal heart sounds. Exam reveals no gallop and no friction rub. No murmur heard. Pulmonary/Chest: Effort normal and breath sounds normal. No tachypnea and no bradypnea. No respiratory distress. No wheezes or rales noted. Abdominal: Soft. Bowel sounds are normal. Pt exhibits no shifting dullness, no distension, no pulsatile liver, no fluid wave, no abdominal bruit and no ascites. There is no tenderness. There is no rigidity, no rebound, no guarding, no tenderness at McBurney's point and negative Abrams's sign. Musculoskeletal: Normal range of motion. Neurological: Pt is alert and oriented to person, place, and time. No cranial nerve deficit. Skin: Skin is warm and dry. No rash noted. Pt is not diaphoretic. No erythema. No pallor. Psychiatric: Pt has a normal mood and affect. Pt behavior is normal. Thought content normal. Limitations: no limitations Course Vital Signs 12/29/17 12/29/17 18:31 19:12 Temperature 98.2 F Pulse Rate 84 Respiratory 16 16 Rate Blood Pressure 122/55 O2 Sat by Pulse 98 Oximetry Medical Decision Making - Medical Decision Making Laboratory studies included a urinalysis which is positive for urinary tract infection as there is greater than 182 WBCs and positive nitrites. Patient was given a dose of Bactrim here in the emergency department and given a prescription pressure as well. Laboratory studies were not completed as there was no significant findings on physical exam and vitals were within normal limits. Patient also had very to follow the PCP which factoring into this decision.Explained all labs and diagnostic test results and that we will discharge the patient home and patient is to follow up with PCP in 1-2 days and return to the ED if symptoms worsen. Pt is agreeable to plan. - Lab Data Lab Results 12/29/17 Range/Units 19:10 Urine Color Yellow Urine Appearance Cloudy H (Clear) Urine pH 5.5 (5.0-8.0) Ur Specific [place] 1.021 (1.001-1.035) Urine Protein Trace H (Negative) Urine Glucose (UA) Negative (Negative) Urine Ketones Negative (Negative) Urine Blood Trace H (Negative) Urine Nitrite Positive H (Negative) Urine Bilirubin Negative (Negative) Urine Urobilinogen <2.0 (<2.0) mg/dL Ur Leukocyte Esterase Large H (Negative) Urine RBC 27 H (0-5) /hpf Urine WBC >182 H (0-5) /hpf Ur Squamous Epith Cells <1 (0-4) /hpf Urine Bacteria Occasional H (None) /hpf Urine Mucus Rare H (None) /hpf Disposition Clinical Impression: Urinary tract infection Disposition: HOME SELF-CARE Condition: Good Instructions: Urinary Tract Infection in Women (ED) Prescriptions: Sulfamethox-Tmp 800-160Mg [Bactrim DS 800-160 mg] 1 tab PO Q12HR 7 Days #14 tab Is patient prescribed a controlled substance at d/c from ED?: No Referrals: Nathanael Watt DO [Primary Care Provider] - 1-2 days Time of Disposition: 19:28
[2017-12-29 19:21] LABS: Appearance,Urine Cloudy (Clear); Bacteria,Urine Occasional /hpf; Bilirubin,Urine Negative (Negative); Blood,Urine Trace (Negative); Color,Urine Yellow; Glucose,Urine (UA) Negative (Negative); Ketones,Urine Negative (Negative); Leukocyte Esterase,Urine Large (Negative); Mucus,Urine Rare /hpf; Nitrite,Urine Positive (Negative); PH, Urine 5.5 (5.0-8.0); Protein,Urine Trace (Negative); RBC,Urine 27 /hpf (0-5); Specific Gravity,Urine 1.021 (1.001-1.035); Squamous Epithelial Cell,Urine <1 /hpf (0-4); Urobilinogen,Urine <2.0 mg/dL (<2.0); WBC,Urine >182 /hpf (0-5)
[2017-12-29] MEDS ORDERED: SULFAMETHOX-TMP 800-160MG 1 EACH TAB PO STA (19:26)
== END 2017-12-29 19:44 | disposition home or self-care (01) ==
LOC: EC 18:15
DX: N39.0 Urinary tract infection, site not specified (principal); E78.5 Hyperlipidemia, unspecified; Z90.49 Acquired absence of other specified parts of digestive tract; Z98.890 Other specified postprocedural states; Z87.891 Personal history of nicotine dependence; Z79.899 Other long term (current) drug therapy; Z88.0 Allergy status to penicillin; Z88.1 Allergy status to other antibiotic agents
CPT/HCPCS: 81001; 87077; 87086; 87186; 99283

== ENCOUNTER → 2018-09-17 | Outpatient (CLI) | payer MEDICARE ==
--- NOTE | 2018-09-17 08:29 | XR ---
EXAMINATION TYPE: XR chest 2V DATE OF EXAM: 09/17/2018 COMPARISON: Prior chest x-ray 08/22/2016, 09/04/2016 HISTORY: COPD TECHNIQUE: Frontal and lateral views of the chest are obtained. FINDINGS: There is no focal air space opacity, pleural effusion, or pneumothorax seen. The cardiac silhouette size is stable. The aorta is dense. There is eventration of the hemidiaphragms. The osse ous structures are intact. There is hyperinflation which may be indicative of COPD. Thoracic spondyl osis is again seen. IMPRESSION: No acute cardiopulmonary process.
== END | disposition home or self-care (01) ==
LOC: RADXRMAIN 07:44
PROVIDERS: ATTEND Family Medicine
DX: J44.9 Chronic obstructive pulmonary disease, unspecified (principal)
CPT/HCPCS: 71046

== ENCOUNTER 2018-10-17 10:32 | Day surgery (SDC) | payer MEDICARE ==
[2018-10-14 15:56] VITALS: BMI 27.0
[~2018-10-17 10:32] MED LIST: LACTATED RINGERS 1,000 ML IV SCH
[2018-10-17 11:03] VITALS: TEMP 98.5
[2018-10-17] MEDS ORDERED: PROPOFOL 10 MG/ML 20 ML VIAL IV ONE (11:54)
[2018-10-17] MEDS ORDERED: LACTATED RINGERS 1,000 ML IV ONE (11:56)
--- NOTE | 2018-10-17 12:06 | P.PCN ---
Date of Procedure: 10/17/18 Procedure(s) Performed: BRIEF HISTORY: Patient is a 73-year-old, pleasant, white female, scheduled for an upper endoscopy as a part of evaluation of globus sensation daily for the last few months duration. Has occasional heartburn. She was started on Prilosec 20 mg daily. PROCEDURE PERFORMED: Esophagogastroduodenoscopy With biopsy PREOPERATIVE DIAGNOSIS: GERD/globus pharyngeus IV sedation per anesthesia. PROCEDURE: After informed consent was obtained, the patient was brought into the endoscopy unit. IV sedation was administered by Anesthesia under continuous monitoring. Initially the Olympus GIF-140 video endoscope was inserted into the mouth. Esophagus intubated without any difficulty. It was gradually advanced into the stomach and duodenum and carefully examined. The bulb and the second part of the duodenum appeared normal. The scope at this time was withdrawn to the stomach, adequately insufflated with air, and upon careful examination, mucosa of the antrum, had patchy areas of erythema in the prepyloric area and biopsies were done. The body, cardia and the fundus appeared normal. The scope was then withdrawn into the esophagus. The GE junction was located at 39 cm from the incisors. small sliding Hiatal hernia noted. There were 2 linear erosions in the distal esophagus consistent with LA grade B reflux esophagitis. The rest of theesophagus appeared normal. The patient tolerated the procedure well. IMPRESSION: 1. Mild antral gastritis 2. Small hiatal hernia and LA grade B reflux esophagitis RECOMMENDATIONS: The findings of this examination were discussed with the patient as well as a family. She will follow with the biopsy results. She was advised to continue with Prilosec 20 mg daily and follow antireflux measures.
[2018-10-17 12:27] VITALS: BP 117/71; PULSE 83; RESP 20
== END 2018-10-17 13:11 | disposition home or self-care (01) ==
LOC: ORWHC2ENDO 10:32
PROVIDERS: ATTEND Internal Medicine Gastroenterology
DX: K29.50 Unspecified chronic gastritis without bleeding (principal); K21.0 Gastro-esophageal reflux disease with esophagitis; K44.9 Diaphragmatic hernia without obstruction or gangrene; F45.8 Other somatoform disorders; I10 Essential (primary) hypertension; E78.5 Hyperlipidemia, unspecified; J44.9 Chronic obstructive pulmonary disease, unspecified; Z79.1 Long term (current) use of non-steroidal anti-inflammatories (NSAID); Z79.890 Hormone replacement therapy; Z79.899 Other long term (current) drug therapy; Z88.1 Allergy status to other antibiotic agents; Z88.0 Allergy status to penicillin
CPT/HCPCS: 88305; 43239; J2704

== ENCOUNTER → 2018-12-12 | Outpatient (CLI) | payer MEDICARE ==
--- NOTE | 2018-12-16 09:25 | MM ---
Reason for exam: screening (asymptomatic). Last mammogram was performed 1 year and 6 months ago. History: Patient is postmenopausal. Took estrogen for 10 years beginning at age 49. Physical Findings: A clinical breast exam by your physician is recommended on an annual basis and results should be correlated with mammographic findings. MG 3D Screening Mammo W/Cad Bilateral CC and MLO view(s) were taken. Prior study comparison: June 07, 2017, bilateral MG screening mammo w CAD. May 14, 2016, bilateral MG screening mammo w CAD. The breast tissue is almost entirely fat. No significant changes when compared with prior studies. ASSESSMENT: Negative, BI-RAD 1 RECOMMENDATION: Routine screening mammogram of both breasts in 1 year.
== END ==
LOC: RADMAMWWP 14:46
PROVIDERS: ATTEND Family Medicine
DX: Z12.31 Encounter for screening mammogram for malignant neoplasm of breast (principal)
CPT/HCPCS: 77063; 77067

== ENCOUNTER → 2022-02-02 | Outpatient (CLI) | payer MEDICARE ==
--- NOTE | 2022-02-02 16:32 | BD ---
EXAMINATION TYPE: Axial Bone Density DATE OF EXAM: 02/02/2022 COMPARISON: 06.07.2017 CLINICAL HISTORY: 76 years year old Female. ICD-10 CODE: M85.819 Disorder of Bone Height: 54.5 Weight: 123 FRAX RISK QUESTIONS: Glucocorticoids (More than 3mos): YES (Ex: prednisone, prednisolone, methylprednisolone, dexamethasone, and hydrocortisone). Current Tobacco Use: QUIT 5 YRS AGO RISK FACTORS HISTORY OF: SLIGHTLY LOW IN DAIRY CONSUMPTION Postmenopausal woman: 54 YRS OLD Take estrogen and/or progesterone medications: YES, FOR ABOUT 5 YRS IN THE PAST Hyperparathyroidism: NO Adrenal Insufficiency: NO MEDICATIONS: Prednisone or other steroids: YES, FOR COPD, FOR ABOUT 10 YRS Osteoporosis Medications: EVISTA, FOR 20 YRS Additional Medications: BP MEDS, REFLUX MEDS, STATIN FOR CHOLESTEROL, VIT D AND CALCIUM Additional History: HYPERTENSION, REFLUX, CHOLESTEROL, COPD, OSTEOPOROSIS, EXAM MEASUREMENTS: Bone mineral densitometry was performed using the [employer] System. Bone mineral density as measured about the Lumbar spine is: ----- L1-L4(G/cm2): 1.544 T Score Values are as follows: ----- L1: 1.0 ----- L2: 3.8 ----- L3: 3.9 ----- L4: 2.5 ----- L1-L4: 3.0 Bone mineral density has: Increased 1.1% since study of: 06.07.2017 Bone mineral density about the R hip (g/cm2): 0.751 Bone mineral density about the L hip (g/cm2): 0.856 T Score values are as follows: -----R Neck: -2.4 -----L Neck: -1.9 -----R Total: -2.0 -----L Total: -1.2 Bone mineral density has: Increased 1.8% since study of: 06.07.2017 FRAX%s: The graph provided illustrates a 25.6% chance for a major osteoporotic fx and a 9.45 chance f or the hips probability for fx in 10 years time. IMPRESSION: Osteopenia (T Score between -2.5 and -1). There is slightly increased risk of fracture and the patient may be considered for treatment. Re-Screen 2-5 years. NOTE: T-SCORE=SD OF THE YOUNG ADULT MEAN.
== END | disposition home or self-care (01) ==
LOC: RADBDWWP 07:41
PROVIDERS: ATTEND Family Medicine
DX: Z13.820 Encounter for screening for osteoporosis (principal); M85.89 Other specified disorders of bone density and structure, multiple sites
CPT/HCPCS: 77080

== ENCOUNTER 2023-12-13 14:00 | Day surgery (SDC) | payer MEDICARE ==
[~2023-12-13 14:00] MED LIST changes: +DEXTROSE 50% SYRINGE 50 ML IVP ONE; -LACTATED RINGERS 1,000 ML IV SCH
[2023-12-13] MEDS ORDERED: LIDOCAINE 1% INJ 10MG/ML (20 ML MDV) ONE (14:02)
[2023-12-13] MEDS ORDERED: PROPOFOL 10 MG/ML 20 ML VIAL IV ONE (14:02)
--- NOTE | 2023-12-20 15:55 | PCN ---
PROCEDURE NOTE REQUESTING PHYSICIAN: Dr. Watt. BRIEF HISTORY: The patient is a 78-year-old pleasant white female scheduled for an elective colonoscopy as a part of evaluation of intermittent rectal bleeding for the last 3 months' duration. PROCEDURE PERFORMED: Colonoscopy. PREOPERATIVE DIAGNOSIS: Intermittent rectal bleeding. ANESTHESIA: IV sedation per Anesthesia. DESCRIPTION OF PROCEDURE: After informed consent was obtained from the patient, she was brought to the endoscopy unit. IV conscious sedation was administered by Anesthesia under continuous monitoring. Initial digital rectal examination was normal. The Olympus CF-190 video colonoscope was then inserted into the rectum and gradually advanced into the cecum. Careful examination was performed as the scope was gradually being withdrawn. The ileocecal valve and the appendiceal orifice were visualized and appeared normal. The prep was excellent. Mucosa of the cecum, ascending colon, transverse colon, and descending colon appeared normal with a moderate sigmoid diverticulosis seen. Rectum appeared normal. Retroflexion was performed in the rectum. No lesions were noted and the patient tolerated the procedure well. IMPRESSION: 1. Moderate sigmoid diverticulosis. 2. No evidence of colorectal neoplasia. RECOMMENDATIONS: Findings of this examination were discussed with the patient as well as the family. She was advised to be on a high-fiber diet and take fiber supplements on a regular basis and avoid straining and constipation. MMODL / IJN: [id number] /
== END 2023-12-13 15:10 ==
LOC: ORWHC2ENDO 14:00
PROVIDERS: ATTEND Internal Medicine Gastroenterology
DX: K57.30 Diverticulosis of large intestine without perforation or abscess without bleeding
CPT/HCPCS: 45378

== ENCOUNTER → 2024-02-21 | Outpatient (CLI) | payer MEDICARE ==
--- NOTE | 2024-02-21 09:28 | BD ---
EXAMINATION TYPE: Axial Bone Density DATE OF EXAM: 02/21/2024 CLINICAL HISTORY: 78 years old Female. ICD-10 CODE: Z78.0 ASYMPTOMATIC MENOPAUSAL STATE Height: 54.7 in Weight: 120 lbs FRAX RISK QUESTIONS: Secondary Osteoporosis: 3. Menopause before 44: partial hysterectomy 31 RISK FACTORS MEDICATIONS: Osteoporosis Medications: yes Which medication: Evista How Lon+ years EXAM MEASUREMENTS: Bone mineral densitometry was performed using the [employer] System. Bone mineral density as measured about the Lumbar spine is: ----- L1-L4(G/cm2): 1.601 T Score Values are as follows: ----- L1: 1.1 ----- L2: 3.4 ----- L3: 5.0 ----- L4: 4.0 ----- L1-L4: 3.5 Z Score Values are as follows: ----- L1: 3.3 ----- L2: 5.6 ----- L3: 7.2 ----- L4: 6.1 ----- L1-L4: 5.7 Bone mineral density has: Increased 3.7% since study of: 02/02/2022 Bone mineral density about the R hip (g/cm2): 0.734 Bone mineral density about the L hip (g/cm2): 0.889 T Score values are as follows: -----R Neck: -2.7 -----L Neck: -1.8 -----R Total: -2.2 -----L Total: -0.9 Z Score values are as follows: -----R Neck: -0.3 -----L Neck: 0.6 -----R Total: 0.1 -----L Total: 1.3 Bone mineral density has: Increased 1.0% since study of: 02/02/2022 FRAX%s: The graph provided illustrates a 21.0% chance for a major osteoporotic fx and a 7.7% chance f or the hips probability for fx in 10 years time. IMPRESSION: Normal (Values between +1 and -1 indicate normal bone mass). Consider repeating this study in 5 year s or sooner if there is some new clinical indication. NOTE: T-SCORE=SD OF THE YOUNG ADULT MEAN. [facility], , 02/21/2024 9:26 AM
== END | disposition home or self-care (01) ==
LOC: RADBDWWP 08:28
PROVIDERS: ATTEND Family Medicine
CPT/HCPCS: 77080